=== PATIENT | male | born 1940 | race Caucasian/White ===

== ENCOUNTER 2017-05-08 05:44 | Inpatient (IN) | payer MEDICARE, OTHER ==
[~2017-05-08] VITALS: Ht 185.4 cm; Wt 103.2 kg
[~2017-05-08 05:44] MED LIST: ASPI-496 PO; ATOR20TA PO; GABA300S PO; HYDROCODONE PO; INDERAL PO; TRAMADOL PO; ZOLP10TA PO
[2017-05-08] MEDS ORDERED: LACTATED RINGERS 1,000 ML IV SCH (06:34)
[2017-05-08 06:40] VITALS: BP 115/71
[2017-05-08] MEDS ORDERED: TRAM50TA2 PO (06:48)
[2017-05-08] MEDS ORDERED: BUPIVACAINE/PF 0.25% ONE (06:53)
[2017-05-08] MEDS ORDERED: MIDAZOLAM 1 MG/ML, 2ML ONE (06:56)
[2017-05-08] MEDS ORDERED: FENTANYL PF 100 MCG/2ML ONE ×2 (06:56→08:46)
[2017-05-08] MEDS ORDERED: HYDROmorphone 1 MG/ML, 1ML ONE (06:56)
[2017-05-08] MEDS ORDERED: SODIUM CHLORIDE 0.9% 50 ML ONE (06:57)
[2017-05-08] MEDS ORDERED: EPINEPHRINE 1 MG/ML, 1ML ONE (06:57)
[2017-05-08] MEDS ORDERED: KETOROLAC 60 MG/2 ML ONE (06:57)
[2017-05-08] MEDS ORDERED: ROPIvacaine/PF 0.2%, 20 ML ONE (06:57)
[2017-05-08] MEDS ORDERED: TRANEXAMIC ACID 100 MG/ML, 10ML ONE (07:01)
[2017-05-08] MEDS ORDERED: ROCURONIUM 10 MG/ML ONE (07:09)
[2017-05-08] MEDS ORDERED: DEXAMETHASONE 4 MG/ML, 1ML ONE (07:09)
[2017-05-08] MEDS ORDERED: CEFAZOLIN 1,000 MG ONE (07:09)
[2017-05-08] MEDS ORDERED: SUCCINYLCHOLINE 20 MG/ML, 10ML ONE (07:09)
[2017-05-08] MEDS ORDERED: ONDANSETRON 2MG/ML, 2ML ONE (07:09)
[2017-05-08] MEDS ORDERED: PROPOFOL 10 MG/ML, 20ML ONE (07:09)
[2017-05-08] MEDS ORDERED: LABETALOL 5MG/ML, 20ML IV PRN (08:00)
[2017-05-08] MEDS ORDERED: METOCLOPRAMIDE 5 MG/ML, 2ML IV PRN (08:00)
[2017-05-08] MEDS ORDERED: hydrALAzine 20 MG/ML, 1ML IV PRN (08:00)
[2017-05-08] MEDS ORDERED: ONDANSETRON 2MG/ML, 2ML IVPush PRN (08:00)
[2017-05-08] MEDS ORDERED: OXYcodone 5 MG/5 ML ORAL.SOL UDC PO PRN (08:00)
[2017-05-08] MEDS ORDERED: ACETAMINOPHEN 325 MG TABLET PO PRN (08:00)
[2017-05-08] MEDS ORDERED: ACETAMINOPHEN 650 MG/20.3 ML UDC ONE (08:46)
[2017-05-08] MEDS ORDERED: OXYcodone 5 MG/5 ML ORAL.SOL UDC ONE (08:47)
[2017-05-08] MEDS: FENTANYL PF 100 MCG/2ML IV PRN ×3 (08:48→09:04)
[2017-05-08] MEDS ORDERED: ACETAMINOPHEN 650 MG/20.3 ML UDC PO PRN (09:00)
[2017-05-08] MEDS ORDERED: SENNA/DOCUSATE TABLET PO PRN (09:00)
[2017-05-08] MEDS ORDERED: BISACODYL 10 MG SUPP PR PRN (09:00)
[2017-05-08] MEDS ORDERED: MAGNESIUM HYDROXIDE 8%, 30ML UDC PO PRN (09:00)
[2017-05-08] MEDS ORDERED: DIPHENHYDRAMINE 50 MG CAPSULE PO PRN (09:00)
[2017-05-08] MEDS ORDERED: DIAZEPAM 5 MG TABLET PO PRN (09:00)
[2017-05-08] MEDS ORDERED: TRANEXAMIC ACID 1,000 MG in SODIUM CHLORIDE 0.9% 100 ML IVPB ONE (09:00)
[2017-05-08] MEDS ORDERED: ZOLPIDEM 5MG TABLET PO PRN (09:00)
[2017-05-08] MEDS ORDERED: PROMETHAZINE 25 MG/ML, 1ML IM PRN (09:00)
[2017-05-08] MEDS ORDERED: SCOPOLAMINE PATCH, 1.5MG PATCH.TD72 TD SCH (09:00)
[2017-05-08] MEDS ORDERED: HYDROcodone/APAP 10/325 MG TABLET PO PRN (09:00)
[2017-05-08] MEDS ORDERED: ONDANSETRON 4 MG TABLET PO PRN (09:00)
[2017-05-08] MEDS ORDERED: OXYcodone IR 5MG TABLET PO PRN (09:00)
[2017-05-08] MEDS ORDERED: PROMETHAZINE 12.5 MG SUPP PR PRN (09:00)
[2017-05-08] MEDS ORDERED: ZOLPIDEM 10MG TABLET PO PRN (09:00)
[2017-05-08] MEDS ORDERED: GABAPENTIN PO SCH (09:00)
[2017-05-08] MEDS: OXYcodone IR 5MG TABLET PO SCH ×4 (09:00→21:45)
[2017-05-08] MEDS ORDERED: ONDANSETRON 2MG/ML, 2ML IV PRN (09:00)
[2017-05-08] MEDS ORDERED: ALUMINUM/MAG/SIMETHICONE 30 ML UDC PO PRN (09:00)
[2017-05-08] MEDS ORDERED: HYDROmorphone 2 MG/ML, 1ML ONE (09:06)
[2017-05-08] MEDS: HYDROmorphone 1 MG/ML, 1ML IV PRN ×2 (09:08→09:21)
[2017-05-08 10:00] VITALS: BP 101/61
[2017-05-08] MEDS: D5%-0.45% NACL 1,000 ML IV SCH ×2 (11:02→14:35)
[2017-05-08] MEDS: PROPRANOLOL 10 MG TABLET PO SCH (11:02)
[2017-05-08] MEDS: ATORVASTATIN 20 MG TABLET PO SCH ×2 (11:35→21:00)
[2017-05-08] MEDS: DOCUSATE 100 MG CAPSULE PO SCH ×2 (11:41→21:46)
[2017-05-08] MEDS: MULTIVITAMINS/MINERALS TABLET PO SCH (11:41)
[2017-05-08] MEDS: TAMSULOSIN 0.4 MG CAP.ER.24H PO SCH (11:41)
[2017-05-08] MEDS: CEFAZOLIN PMX 2GM/50ML 50 ML IVPB SCH ×2 (14:35→21:48)
[2017-05-08 15:09] VITALS: BP 93/61
[2017-05-08 20:34] VITALS: BP 112/57
[2017-05-08] MEDS: GABAPENTIN 100 MG CAPSULE PO SCH (21:00)
[2017-05-08] MEDS: GABAPENTIN 400 MG CAPSULE PO SCH (21:00)
[2017-05-09 00:14] VITALS: BP 124/58
[2017-05-09] MEDS: D5%-0.45% NACL 1,000 ML IV SCH ×4 (00:28→22:50)
[2017-05-09] MEDS: OXYcodone IR 5MG TABLET PO SCH ×6 (01:00→20:39)
[2017-05-09 04:32] LABS: HEMATOCRIT 34.9 % (39.2-51.8); HEMOGLOBIN 11.8 g/dL (13.7-18.0)
[2017-05-09 04:46] VITALS: BP 119/45
[2017-05-09] MEDS ORDERED: DEXAMETHASONE 4 MG/ML, 1ML IVPush SCH (06:00)
[2017-05-09] MEDS: ASPIRIN 81 MG TABLET EC PO SCH (06:43)
[2017-05-09 08:41] VITALS: BP 111/54
[2017-05-09] MEDS: PROPRANOLOL 10 MG TABLET PO SCH (08:42)
[2017-05-09] MEDS: GABAPENTIN 400 MG CAPSULE PO SCH (08:42)
[2017-05-09] MEDS: TAMSULOSIN 0.4 MG CAP.ER.24H PO SCH (08:42)
[2017-05-09] MEDS: MULTIVITAMINS/MINERALS TABLET PO SCH (08:42)
[2017-05-09] MEDS: GABAPENTIN 100 MG CAPSULE PO SCH (08:42)
[2017-05-09] MEDS: DOCUSATE 100 MG CAPSULE PO SCH ×2 (08:42→20:40)
[2017-05-09] MEDS: KETOROLAC 30 MG/1 ML IV SCH ×3 (08:43→23:42)
[2017-05-09 13:18] VITALS: BP 102/45
[2017-05-09 20:02] VITALS: BP 100/45
[2017-05-09] MEDS: ATORVASTATIN 20 MG TABLET PO SCH (20:39)
[2017-05-09] MEDS: GABAPENTIN 300 MG CAPSULE PO SCH (20:39)
[2017-05-10] MEDS: OXYcodone IR 5MG TABLET PO SCH ×3 (01:00→10:29)
[2017-05-10] MEDS: ASPIRIN 81 MG TABLET EC PO SCH (06:15)
[2017-05-10 07:09] VITALS: BP 106/54
[2017-05-10] MEDS: D5%-0.45% NACL 1,000 ML IV SCH (08:40)
[2017-05-10] MEDS: DOCUSATE 100 MG CAPSULE PO SCH (10:19)
[2017-05-10] MEDS: TAMSULOSIN 0.4 MG CAP.ER.24H PO SCH (10:19)
[2017-05-10] MEDS: KETOROLAC 30 MG/1 ML IV SCH (10:19)
[2017-05-10] MEDS: PROPRANOLOL 10 MG TABLET PO SCH (10:20)
[2017-05-10] MEDS: MULTIVITAMINS/MINERALS TABLET PO SCH (10:20)
[2017-05-10] MEDS: GABAPENTIN 300 MG CAPSULE PO SCH (10:20)
[2017-05-10 13:50] VITALS: BP 112/53
[2017-05-10] MEDS ORDERED: OXYC5CAP2 PO (15:09)
== END 2017-05-10 15:25 | disposition home or self-care (01) | DRG 470 ==
LOC: ORIP 05:44 → 4NOR 09:56 → DCLOUNGE 05-10 14:40
PROVIDERS: ADMIT Orthopaedic Surgery; ATTEND Orthopaedic Surgery
PROC: 0SR901Z Replacement of Right Hip Joint with Metal Synthetic Substitute, Open Approach (ICD-10-PCS; principal; 2017-05-08 07:30)
DX: M16.11 Unilateral primary osteoarthritis, right hip (principal); E78.5 Hyperlipidemia, unspecified; Z87.891 Personal history of nicotine dependence; M51.36 Other intervertebral disc degeneration, lumbar region; G89.29 Other chronic pain; Z88.8 Allergy status to other drugs, medicaments and biological substances
CPT/HCPCS: 36415; 72170; 85014; 85018; 86850; 86900; C1713; J0171; J0690; J1100; J1170; J1885; J2250; J2405; J2704; J2795; J3010; J3490; Q0162; C1776; J0330; J7120

== ENCOUNTER → 2017-12-20 | Outpatient (CLI) | payer MEDICARE ==
[~2017-12-20] MED LIST changes: +OXYC5CAP2 PO; +TRAM50TA2 PO
== END ==
LOC: CFH 06:58
PROVIDERS: ATTEND Family Medicine
DX: N28.1 Cyst of kidney, acquired (principal)
CPT/HCPCS: 76700

== ENCOUNTER → 2018-02-21 | Outpatient (CLI) | payer MEDICARE ==
[~2018-02-21] MED LIST changes: +OMNIPAQUE 350 MG/ML, 150 ML BOTTLE ONE
== END | disposition home or self-care (01) ==
LOC: CFH 09:58
PROVIDERS: ATTEND Urology
DX: N28.1 Cyst of kidney, acquired (principal); C61 Malignant neoplasm of prostate; Q63.1 Lobulated, fused and horseshoe kidney
CPT/HCPCS: 74178; Q9967